=== PATIENT | male | born 2000 | race Caucasian/White ===

== ENCOUNTER 2024-09-24 14:11 | Emergency (ER) | payer BC, SELFPAY ==
[2024-09-24 14:26] VITALS: BP 228/150; PULSE 94; RESP 16; TEMP 36.7; O2SAT 99; BMI 41.6
[2024-09-24 15:47] VITALS: BP 243/166; PULSE 92; RESP 18; TEMP 36.8; O2SAT 97
--- NOTE | 2024-09-24 15:49 | ED_ITS ---
<Statement entered by Irene Arcos DO - 09/24/24 16:16> DO [place]: I was consulted by the GUI, and we discussed the complexity of the problems being addressed. I approved the treatment and management plan for this patient's care in the emergency department, thus performing a substantive portion of the medical decision making. I signed out care at 1500 to oncoming provider, Dr. Amezcua. Irene Arcos DO Discharge Plan Disposition Patient Disposition: Home, Self-Care Condition: Good Prescriptions Prescriptions: New doxycycline hyclate 100 mg capsule 100 mg PO BID 14 Days Qty: 28 0RF irbesartan 150 mg tablet 150 mg PO DAILY Qty: 60 0RF Referrals Follow up/Referrals: Reddy Zamorano MD [Primary Care Provider] - See instructions Activity Restrictions/Add. Instructions Additional Instructions/Restrictions: Please take all medications as prescribed, return to the emergency department any worsening redness or swelling, please take new blood pressure medication as prescribed until follow-up with primary care provider. Please return to the Emergency Department, PCPs office or department for rabies vaccination on day 3, 7 and 14, 28 Clinical Impressions Clinical Impression: Cat bite Instructions Patient Instructions: Animal Bites Print Language Print Language: Georgian Discharge ED Provider: Robert Amezcua General Adult HPI <OBIE Gallagher - Last Filed: 09/24/24 16:59> General Chief complaint: Animal Bite Stated complaint: AO 09/22/24. Infection R finger/Swelling Time Seen by Provider: 09/24/24 15:31 Mode of Arrival: Ambulatory Source of Information: Patient Description of Symptoms (Recalled from ER Triage Doc. by RN): pt to the ED after a cat bit him on tuesday. pt reports he was trying to help a feral cat when it attacked his hand. pt was seen at [facility] on tuesday and given augmentin. pt reports he has been taking it as ordered but the pain and swelling has continued to worsen. on assessment pt right index finger and dorsal hand is red, warm to the touch and swollen. pt also reports high blood pressure over the last few weeks but has been unable to get into PCP. History of Present Illness HPI narrative: 23-year-old male presents emergency department accompanied by his mother for a 2-day history of right hand pain, swelling and redness, on Tuesday patient was bit by a feral cat , he was seen in outside facility on the same day started on Augmentin 875 mg p.o. twice daily he is only taken 3 dose of this medication, at outside facility did not obtain updated tetanus/rabies vaccination, he is unsure of the cats vaccination status. He denies any fever chills chest pain shortness of breath nausea vomiting abdominal pain no urinary type symptomatology, patient has no other real relevant past medical history, takes no other medications at home, no history of surgeries, denies any tobacco alcohol or drug use. Per mother at the bedside states the redness has now spread involving the dorsal aspect of his hand. Initial triage vitals notable for hypertension, negative for tachycardia, no tachypnea, SpO2 within normal limits, also of note, mother states that they are attempting to get into primary care provider/establish care for possible underlying elevated blood pressure. Patient has had bouts of elevated high blood pressure and some headaches over the last several months. Onset (ago): day(s) Related Data Previous Rx's ?Medication ?Instructions ?Recorded doxycycline hyclate 100 mg capsule 100 mg PO BID 14 days #28 caps 09/24/24 irbesartan 150 mg tablet 150 mg PO DAILY #60 tabs 09/24/24 Allergies Allergy/AdvReac Type Severity Reaction Status Date / Time lisdexamfetamine (From Allergy Unknown Verified 09/24/24 14:55 Vyvanse) allergy reaction ziprasidone (From Geodon) Allergy Unknown Verified 09/24/24 14:55 allergy reaction [facility] <OBIE Gallagher - Last Filed: 09/24/24 16:59> [facility] Disclaimer: The information contained in this section may have been updated after the patient was seen, as this information can be updated by other users. Social History (Updated 09/24/24 @ 16:59 by OBIE Gallagher) Smoking Status: Never smoker alcohol intake: former current occupational status: employed and other Travel in the last 8 weeks: None Have you lived/traveled outside [place] in past 30 days?: No Contact w/someone who lives/traveled outside US past 30 days?: No Exposure to someone with infectious disease in past 14 days?: No Do you have a fever (greater than 100.4 F or 38 C)?: No Have you tested positive for COVID-19: No Exposed to someone with COVID-19 in past 14 days?: No Do you have a sore throat?: No Do you have a cough?: No Do you have any weakness?: No Do you have any diarrhea?: No Are you experiencing any unusual bleeding?: No Do you have any muscle aches/pain?: No Do you have any abdominal pain?: No Are you experiencing loss of taste or smell?: No <OBIE Gallagher - Last Filed: 09/24/24 16:59> ROS Obtained: Yes All systems reviewed & no additional complaints except as docu mented Physical Exam <OBIE Gallagher - Last Filed: 09/24/24 16:59> General General appearance: alert and in no apparent distress Head Head exam: atraumatic and normocephalic Eye Eye exam: Present PERRL and EOMI ENT ENT exam: Present mucous membranes moist Neck Neck exam: Present normal inspection Chest Chest inspection: Present normal inspection and symmetric chest wall rise Respiratory Respiratory exam: Present normal lung sounds bilaterally; Absent respiratory distress Cardiovascular Cardiovascular exam: Present regular rate and normal rhythm Abdominal Exam Abdominal exam: Present soft; Absent tenderness Extremities Exam Extremities exam: Present normal inspection, full ROM, tenderness and other (There is some minimal soft tissue swelling to the dorsum of the right hand, there is some mild soft tissue swelling about the patient's first digit, negative Knievel sign, patient moves extremity to command, no upper or lower extremity weakness, good finger opposition, otherwise neurovascular intact) Back Exam Back exam: Present full ROM Neurological Exam Neurological exam: Present alert and oriented X3 Psychiatric Psychiatric exam: Present normal affect Skin Skin exam: Present warm, dry, erythema and other (Minimal to mild erythema noted around the right first digit, with some normal/mild erythema standing on the dorsum of the hand, no lymphangitic streaking.); Absent rash Medical Decision Making <OBIE Gallagher - Last Filed: 09/24/24 16:59> Medical Records Medical records reviewed: Yes I reviewed the patient's medical records. Screening: Per USPSTF and CDC recommendations, given the prevalence of disease in our region, it is our hospital?s policy to screen for HIV and viral Hepatitis for all patients aged 18 and over and those with ongoing risk factors. Rodrigo Inquiry Pt receiving controlled substance: No Rodrigo was queried for this patient: No Vital Signs: 09/24/24 14:26 09/24/24 15:47 09/24/24 17:05 Temperature 98.1 F 98.3 F 98.3 F Temperature Source Oral Oral Pulse Rate 92 H 74 Pulse Rate [Left Radial] 94 H Respiratory Rate 16 18 18 Blood Pressure 243/166 H 196/108 H Blood Pressure [Right Arm] 228/150 H Blood Pressure Mean [Right Arm] 176 Blood Pressure Source Automatic Cuff Automatic Cuff Blood Pressure Source [Right Arm] Automatic Cuff Blood Pressure Position Sitting Sitting Blood Pressure Position [Right Arm] Sitting 02 Sat by Pulse Oximetry 99 97 Oxygen Delivery Method Room Air Room Air Room Air Orders (Tests/Meds): ED MEDICATIONS Discontinued Medications Generic Name Dose Route Start Last Admin Trade Name Freq PRN Reason Stop Dose Admin Irbesartan 150 mg 09/24/24 15:47 09/24/24 16:40 Irbesartan 150mg Tab PO 09/24/24 15:48 150 mg ONCE ONE Administration Rabies Immune Globulin 2,785 unit 09/24/24 15:46 09/24/24 16:03 Rabies Immune Globulin/Pf 300 Unit/Ml 5ml Vial IM 09/24/24 15:47 2,785 unit ONCE ONE Administration Rabies Vaccine 2.5 unit 09/24/24 15:46 09/24/24 16:06 Rabies Vaccine (Pcec)/Pf 2.5 Unit Vial IM 09/24/24 15:47 2.5 unit .ONCE ONE Administration Tetanus/Reduced Diphtheria/Acell Pertussis 0.5 ml 09/24/24 15:45 09/24/24 16:00 Tet/Diphth/Pert-Adult 0.5ml Syringe IM 09/24/24 15:46 0.5 ml .ONCE ONE Administration ORDERS Category Date Time Status POCUS Point of Care (ER Only) Stat Exams 09/24/24 16:24 Completed Medical Decision Narrative: 23-year-old male presents to the emergency department with right hand pain swelling and redness, cat bite on Tuesday, differential diagnose include not limited to cat scratch fever, cellulitis, mammalian bite, cellulitic abscess. Discussed patient case with attending physician he saw and examined the patient as well Will update patient's tetanus prophylaxis, will give rabies immunoglobulin and his first dose of rabies vaccine here today in the emergency department, as cat was unknown to him and unknown vaccination status. Will also treat patient's asymptomatic hypertension with 150 mg p.o. irbesartan here in the emergency department. Will also obtain POCUS ultrasound to rule out abscess. Attending physician performed the bedside POCUS ultrasound, there is no cobblestoning, there is no concern for cellulitic abscess formation at this time. Please see full ultrasound procedure/dictation note for full details. Patient cleared to be discharged home to self-care, no concern for felon or abscess at this time, patient will be started on irbesartan 150 mg p.o. for asymptomatic hypertension daily, as well as 100 mg p.o. twice daily for 14 days, patient will continue Augmentin. She will return emerged part any worsening signs or symptoms, patient will return to Emergency Department or PCPs office for rabies series vaccination. Strict ED return precaution given. Patient verbalized understanding will follow PCP as directed. And take all medication as prescribed. <Robert Amezcua MD - Last Filed: 09/24/24 17:22> Vital Signs: 09/24/24 14:26 09/24/24 15:47 09/24/24 17:05 Temperature 98.1 F 98.3 F 98.3 F Temperature Source Oral Oral Pulse Rate 92 H 74 Pulse Rate [Left Radial] 94 H Respiratory Rate 16 18 18 Blood Pressure 243/166 H 196/108 H Blood Pressure [Right Arm] 228/150 H Blood Pressure Mean [Right Arm] 176 Blood Pressure Source Automatic Cuff Automatic Cuff Blood Pressure Source [Right Arm] Automatic Cuff Blood Pressure Position Sitting Sitting Blood Pressure Position [Right Arm] Sitting 02 Sat by Pulse Oximetry 99 97 Oxygen Delivery Method Room Air Room Air Room Air Orders (Tests/Meds): ED MEDICATIONS Discontinued Medications Generic Name Dose Route Start Last Admin Trade Name Pkq PRN Reason Stop Dose Admin Irbesartan 150 mg 09/24/24 15:47 09/24/24 16:40 Irbesartan 150mg Tab PO 09/24/24 15:48 150 mg ONCE ONE Administration Rabies Immune Globulin 2,785 unit 09/24/24 15:46 09/24/24 16:03 Rabies Immune Globulin/Pf 300 Unit/Ml 5ml Vial IM 09/24/24 15:47 2,785 unit ONCE ONE Administration Rabies Vaccine 2.5 unit 09/24/24 15:46 09/24/24 16:06 Rabies Vaccine (Pcec)/Pf 2.5 Unit Vial IM 09/24/24 15:47 2.5 unit .ONCE ONE Administration Tetanus/Reduced Diphtheria/Acell Pertussis 0.5 ml 09/24/24 15:45 09/24/24 16:00 Tet/Diphth/Pert-Adult 0.5ml Syringe IM 09/24/24 15:46 0.5 ml .ONCE ONE Administration ORDERS Category Date Time Status POCUS Point of Care (ER Only) Stat Exams 09/24/24 16:24 Completed Medical Decision Narrative: 23-year-old male presents to the emergency department with right hand pain swelling and redness, cat bite on Tuesday, differential diagnose include not limited to cat scratch fever, cellulitis, mammalian bite, cellulitic abscess. Discussed patient case with attending physician he saw and examined the patient as well Will update patient's tetanus prophylaxis, will give rabies immunoglobulin and his first dose of rabies vaccine here today in the emergency department, as cat was unknown to him and unknown vaccination status. Will also treat patient's asymptomatic hypertension with 150 mg p.o. irbesartan here in the emergency department. Will also obtain POCUS ultrasound to rule out abscess. Attending physician performed the bedside POCUS ultrasound, there is no cobblestoning, there is no concern for cellulitic abscess formation at this time. Please see full ultrasound procedure/dictation note for full details. Patient cleared to be discharged home to self-care, no concern for felon or abscess at this time, patient will be started on irbesartan 150 mg p.o. for asymptomatic hypertension daily, as well as 100 mg p.o. twice daily for 14 days, patient will continue Augmentin. She will return emerged part any worsening signs or symptoms, patient will return to Emergency Department or PCPs office for rabies series vaccination. Strict ED return precaution given. Patient verbalized understanding will follow PCP as directed. And take all medication as prescribed. I was consulted by the GUI, and we discussed the complexity of the problems being addressed. I approved the treatment and management plan for this patient's care in the Emergency Department, thus performing a substantive portion of the medical decision making. Robert Amezcua MD Procedures <Robert Amezcua MD - Last Filed: 09/24/24 17:22> Limited Ultrasound Indication:: Limited soft tissue ultrasound Indication: Soft tissue swelling of the right hand Identified structures: Location: Dorsum of right hand and right index finger Findings: Soft tissue cellulitis with inflammatory fluid, no abscess Impression: Cellulitis without abscess Images were saved to permanent archive The study was technically adequate Soft Tissue CPT Codes: CPT Neck: 17489-63 CPT Upper extremity: 68969-29 CPT Axilla: 46426-32 CPT Chest wall: 61688-39 CPT Breast: 47878-89-HY/LT (complete), 82416-43-ZC/LT (limited), CPT Upper Back: 41261-06 CPT Lower Back: 62492-41 CPT Abdominal Wall: 46163-20 CPT Pelvic Wall: 02345-73 CPT Lower Extremity: 04994-02 CPT Other Soft Tissue: 99885-99 This study was performed by me, and I personally interpreted all images/videos. Based on my clinical judgement, these images were adequate and did not necessitate further imaging. Critical Care <OBIE Gallagher - Last Filed: 09/24/24 16:59> Critical Care Time Critical Care Time: No
[2024-09-24] MEDS: TET/DIPHTH/PERT-ADULT 0.5ML SYRINGE 0.5 ML IM (16:00)
[2024-09-24] MEDS: RABIES IMMUNE GLOBULIN/PF 300 UNIT/ML 5ML VIAL 2785 UNIT IM (16:03)
[2024-09-24] MEDS: RABIES VACCINE (PCEC)/PF 2.5 UNIT VIAL IM (16:06)
[2024-09-24] MEDS: IRBESARTAN 150MG TAB 150 MG PO (16:40)
[2024-09-24 17:05] VITALS: BP 196/108; PULSE 74; RESP 18; TEMP 36.8; O2SAT 98
== END 2024-09-24 17:10 | disposition home or self-care (01) ==
PROVIDERS: Emergency Provider Emergency Medicine; PCP Family Medicine
DX: M79.641 Pain in right hand (principal); R22.31 Localized swelling, mass and lump, right upper limb; R51.9 Headache, unspecified; R03.0 Elevated blood-pressure reading, without diagnosis of hypertension; Z20.3 Contact with and (suspected) exposure to rabies; Z23 Encounter for immunization; W55.01XA Bitten by cat, initial encounter; Y93.89 Activity, other specified; Y92.9 Unspecified place or not applicable
CPT/HCPCS: 90375; 90471; 90675; 90715; 96372; 99284

== ENCOUNTER 2024-10-26 14:08 | Outpatient (CLI) | payer BC, SELFPAY ==
[2024-10-26 18:31] LABS: Basophils # 0.1 K/mm3 (0-0.2); Basophils % 0.9 % (0.1-2.0); Eosinophils # 0.1 Kmm3 (0.0-0.4); Eosinophils % 1.3 % (0.1-12.0); Hematocrit 46.3 % (42.0-52.0); Hemoglobin 15.5 g/dL (14.1-18.0); Immature Granulocytes # 0.02 10^3uL; Immature Granulocytes % 0.3 %; Lymphocytes # 2.6 K/mm3 (0.7-4.5); Lymphocytes % 37.8 % (10-50); Mean Corpuscular HGB Conc 33.5 g/dL (31.8-35.4); Mean Corpuscular Hemoglobin 26.1 pg (27.0-31.2); Mean Corpuscular Volume 77.9 fl (80-94); Mean Platelet Volume 11.2 fl (7.4-10.4); Monocytes # 0.7 K/mm3 (0.1-1.0); Monocytes % 9.4 % (1.7-9.3); Neutrophils # 3.5 K/mm3 (1.8-7.8); Neutrophils % 50.3 % (37.0-80.0); Nucleated Red Blood Cells # 0 10^3/uL; Nucleated Red Blood Cells % 0 %; Platelet Count 234 K/mm3 (142-424); Red Blood Count 5.94 M/mm3 (4.60-6.20); Red Cell Distribution Width 13.9 % (11.5-17.5); Red Cell Distribution Width-SD 38.8 fL; White Blood Count 6.9 K/mm3 (4.8-10.8)
[2024-10-26 18:49] LABS: Alanine Aminotransferase 56 U/L (12-78); Albumin/Globulin Ratio 1.9 (1.1-1.8); Alkaline Phosphatase 86 U/L (38-126); Anion Gap 10.6 mEq/L (5-15); Aspartate Amino Transferase 32 U/L (17-59); Bilirubin,Total 0.5 mg/dl (0.2-1.3); Blood Urea Nitrogen 15 mg/dl (9-20); Calcium 9.9 mg/dl (8.4-10.2); Carbon Dioxide 30 mmol/L (22.0-30.0); Chloride 103 mmol/L (98-107); Chol/HDL Ratio 6.2 (1-3.5); Cholesterol 198 mg/dl (140-200); Estimated Glomerular Filt Rate 142 ml/min (>60); GFR (African American) 172 ML/MIN (>60); Globulin 2.7 g/dL (1.3-3.2); Glucose 106 mg/dl (74-100); HDL Cholesterol 32 mg/dl (40-60); Potassium 4.6 mmoL/L (3.5-5.1); Sodium 139 mmol/L (136-145); Total Protein,Serum 7.7 g/dl (6.3-8.2); Triglycerides 240 mg/dl (30-150); VLDL Cholesterol 48 mg/dL (0-40)
[2024-10-26 19:00] LABS: Direct LDL Cholesterol 130.77 mg/dL (100-129)
[2024-10-26 19:35] LABS: HIV Combo NEGATIVE (Negative)
[2024-10-26 21:23] LABS: Hepatitis C Ab Qual. W/ RFX NEGATIVE (Negative)
== END 2024-10-26 23:59 | disposition home or self-care (01) ==
LOC: LAB.DROPOF 10-29 09:55
PROVIDERS: PCP Family Medicine; Visit Provider Family Medicine
DX: I10 Essential (primary) hypertension (principal); E66.01 Morbid (severe) obesity due to excess calories; Z11.59 Encounter for screening for other viral diseases
CPT/HCPCS: 80053; 80061; 85025; 86803; 87389

== ENCOUNTER 2025-02-06 05:10 | Emergency (ER) | payer BC, SELFPAY ==
[2025-02-06] VITALS (7 sets, daily range): BP systolic 94–121; BP diastolic 54–80; PULSE 87–101; RESP 19–22; TEMP 36.8; O2SAT 96–99; BMI 37.3
--- NOTE | 2025-02-06 05:12 | XR_ITS ---
PROCEDURE INFORMATION: Exam: XR Chest Exam date and time: 02/06/2025 5:23 AM Age: 24 years old Clinical indication: Pain; Chest pressure; Additional info: Left chest pain TECHNIQUE: Imaging protocol: Radiologic exam of the chest. Views: 2 views. COMPARISON: No relevant prior studies available. FINDINGS: Lungs: Mild underinflation. No definite consolidation. Pleural spaces: No significant pleural effusion. No pneumothorax. Heart/Mediastinum: No cardiomegaly. Bones/joints: No displaced fracture. Soft tissues: Unremarkable. IMPRESSION: No definite acute cardiopulmonary disease.
--- NOTE | 2025-02-06 05:13 | HMH.EDGENADL ---
Discharge Plan Disposition Patient Disposition: Home, Self-Care Prescriptions Prescriptions: No Action amlodipine-benazepril [Lotrel] 10-40 mg capsule 1 cap PO DAILY Qty: 90 3RF hydrochlorothiazide 25 mg tablet 25 mg PO DAILY Qty: 90 3RF Referrals Follow up/Referrals: Jatinder Shin MD [Staff Physician, Cardiology] - See instructions Reddy Zamorano MD [Primary Care Provider, Family Practice] - See instructions Activity Restrictions/Add. Instructions Additional Instructions/Restrictions: No evidence of an acute cardiopulmonary emergency identified today. Please follow-up with cardiology to discuss your symptoms further. Clinical Impressions Clinical Impression: Chest pain, Obesity Print Language Print Language: Citizen Of [place] Discharge ED Provider: Maude Shearer Adult HPI <Maude Shearer MD - Last Filed: 02/06/25 07:15> General Chief complaint: Chest Pain Stated complaint: chest pain Time Seen by Provider: 02/06/25 05:12 History of Present Illness HPI narrative: 24-year-old male with history of high blood pressure presents to the ER complaining of approximately 20 hours hours of sharp left-sided chest pain. He states it has not gotten better or worse since the time that it started but it has not gone away so he came to the ER for evaluation. Patient reports walking his dog made him feel somewhat better but nothing specific makes it worse, he has no shortness of breath or difficulty breathing, no headache, dizziness, numbness, tingling, weakness, abdominal pain, nausea, vomiting, diarrhea, or any other associated symptoms. Patient denies any cardiac history. No other complaints or concerns. Patient denies alcohol, tobacco, illicit drug use. Related Data Previous Rx's ?Medication ?Instructions ?Recorded amlodipine 10 mg-benazepril 40 mg 1 cap PO DAILY #90 caps 10/26/24 capsule (Lotrel) hydrochlorothiazide 25 mg tablet 25 mg PO DAILY #90 tabs 10/26/24 Allergies Allergy/AdvReac Type Severity Reaction Status Date / Time lisdexamfetamine (From Allergy Unknown Verified 10/26/24 13:31 Vyvanse) allergy reaction ziprasidone (From Geodon) Allergy Unknown Verified 10/26/24 13:31 allergy reaction PFSH <Maude Shearer MD - Last Filed: 02/06/25 07:15> [facility] Disclaimer: The information contained in this section may have been updated after the patient was seen, as this information can be updated by other users. Medical History (Updated 02/06/25 @ 07:56 by Satnam Benton MD) Hypertension Surgical History (Updated 10/26/24 @ 13:34 by Venus Alexandra MA) No history of previous surgery Family History (Updated 10/26/24 @ 13:35 by Venus Alexandra MA) Father Cancer Diabetes Grandfather Heart failure Other Hypertension Social History (Updated 09/24/24 @ 16:59 by OBIE Gallagher) Smoking Status: Never smoker alcohol intake: former current occupational status: employed and other Travel in the last 8 weeks?: None <Maude Shearer MD - Last Filed: 02/06/25 07:15> ROS Obtained: Yes Systems reviewed as appropriate & no additional complaints except as documented Per HPI Physical Exam <Maude Shearer MD - Last Filed: 02/06/25 07:15> General General appearance: alert, in no apparent distress, anxious and obese Head Head exam: atraumatic and normocephalic Eye Eye exam: Present PERRL and EOMI ENT ENT exam: Present mucous membranes moist Neck Neck exam: Present normal inspection and full ROM Chest Chest inspection: Present symmetric chest wall rise; Absent tenderness Respiratory Respiratory exam: Present normal lung sounds bilaterally; Absent respiratory distress, wheezes or stridor Cardiovascular Cardiovascular exam: Present regular rate and normal rhythm Abdominal Exam Abdominal exam: Present soft; Absent distention or tenderness Extremities Exam Extremities exam: Present full ROM; Absent edema Neurological Exam Neurological exam: Present alert and oriented X3; Absent motor sensory deficit Psychiatric Psychiatric exam: Present anxious (Anxious appearing, asking questions rapidly) Skin Skin exam: Present warm and dry Medical Decision Making <Maude Shearer MD - Last Filed: 02/06/25 07:15> Medical Records Medical records reviewed: Yes I reviewed the patient's medical records. Screening: Per USPSTF and CDC recommendations, given the prevalence of disease in our region, it is our hospital?s policy to screen for HIV and viral Hepatitis for all patients aged 18 and over and those with ongoing risk factors. MR Comment: Patient had visit with Dr. Zamorano in October. He was started on amlodipine and hydrochlorothiazide at that time. Labs from that visit were reviewed by me and are generally unremarkable though he has elevated cholesterol. He is not currently on a statin. Rodrigo Inquiry Pt receiving controlled substance: No Vital Signs: 02/06/25 05:12 02/06/25 05:23 02/06/25 06:00 Temperature 98.3 F Temperature Source Oral Pulse Rate 101 H 101 H Pulse Rate [Left Radial] 101 H Respiratory Rate 19 22 Blood Pressure 106/58 L Blood Pressure [Right Arm] 94/54 L Blood Pressure Mean 63 Blood Pressure Mean [Right Arm] 67 02 Sat by Pulse Oximetry 96 96 Oxygen Delivery Method Room Air Lab Data Lab Results 02/06/25 05:15: WBC 11.4 H, RBC 6.21 H, Hgb 16.8, Hct 48.5, MCV 78.1 L, MCH 27.1, MCHC 34.6, RDW 14.5, Plt Count 334, MPV 9.9, Neut % (Auto) 60.2, Lymph % (Auto) 28.2, [place] % (Auto) 9.5 H, Eos % (Auto) 1.3, Baso % (Auto) 0.6, Neut # (Auto) 6.9, Lymph # (Auto) 3.2, [place] # (Auto) 1.1 H, Eos # (Auto) 0.2, Baso # (Auto) 0.1, PT 11.4, INR 1.03, D-Dimer 0.75 H, Sodium 146 H, Potassium 4.0, Chloride 106, Carbon Dioxide 27, Anion Gap 17.0 H, BUN 18, Creatinine 1.10, Estimated Creat Clear 186, Estimated GFR 84, Est GFR ( Amer) 101, Glucose 97, Calcium 10.1, Total Bilirubin 0.6, AST 33, ALT 39, Alkaline Phosphatase 86, Troponin I < 0.01, Total Protein 9.2 H, Albumin 5.1 H, Globulin 4.1 H, Albumin/Globulin Ratio 1.2 02/06/25 05:15 02/06/25 05:15 Orders (Tests/Meds): ED MEDICATIONS Generic Name Dose Route Start Last Admin Trade Name Freq PRN Reason Stop Dose Admin Nitroglycerin 0.4 mg 02/06/25 05:12 Nitroglycerin 0.4mg Sl Tablet SL 02/07/25 05:13 [id number] PRN Chest Pain Discontinued Medications Generic Name Dose Route Start Last Admin Trade Name Freq PRN Reason Stop Dose Admin Aspirin 324 mg 02/06/25 05:12 02/06/25 05:18 Aspirin 81mg Chewable Tablet PO 02/06/25 05:13 324 mg ONCE ONE Administration Belladonna Alkaloids 60 ml 02/06/25 05:13 02/06/25 05:19 Belladonna Alkaloids 60 Ml Ml PO 02/06/25 05:14 60 ml ONCE ONE Administration Iopamidol 85 ml 02/06/25 06:54 02/06/25 07:00 Iopamidol-370 (76%);100ml Bottle IV 02/06/25 06:55 85 ml ONCE ONE Administration Sodium Chloride 50 ml 02/06/25 06:54 02/06/25 07:00 0.9 % Sodium Chloride 50 Ml Vial IV 02/06/25 06:55 50 ml ONCE ONE Administration Sodium Chloride 10 ml 02/06/25 06:54 02/06/25 07:00 Sodium Chloride 0.9% 10ml Syr (Rad Only) IV 02/06/25 06:55 10 ml ONCE ONE Administration ORDERS Category Date Time Status CT angio chest PE protocol Stat Cat Scan 02/06/25 06:15 Completed XR chest 2V Stat Exams 02/06/25 05:12 Completed Complete Blood Count Auto Diff Stat Lab 02/06/25 05:15 Completed Comprehensive Metabolic Panel Stat Lab 02/06/25 05:15 Completed D-Dimer Stat Lab 02/06/25 05:15 Completed PT INR [Prothrombin Time INR] Stat Lab 02/06/25 05:15 Completed Troponin I Q3H Lab 02/06/25 08:15 Ordered Troponin I Q3H Lab 02/06/25 11:15 Ordered Troponin I Stat Lab 02/06/25 05:15 Completed Medical Decision Narrative: In summary, this 24-year-old male with comorbidities described in the HPI presents to the emergency department today with nearly a day of reportedly sharp, stabbing left-sided chest pain that was only relieved when he was walking his dog, patient has no other associated symptoms. On initial evaluation patient is hemodynamically stable though borderline tachycardic, afebrile, appears anxious on arrival, obese, chest pain not reproducible on exam, benign abdominal exam, cardiopulmonary exam benign. Differential diagnosis includes but is not limited to ACS, considered PE, pneumothorax, esophageal spasm, electrolyte abnormality, anxiety, among others. Based on these concerns, I ordered cardiac workup, chest x-ray, serum labs, D-dimer. ECG personally interpreted demonstrates sinus tachycardia, rate 106, right axis deviation, normal MO and QTc, there are T wave inversions and slight depression in the inferior leads but no reciprocal findings, no STEMI. There is S1Q3T3 pattern so if D-dimer is elevated we will pursue PE scan. Patient received aspirin for treatment. Labs personally reviewed demonstrate leukocytosis WBC 11.4, nonspecific and nonactionable, no anemia, platelets normal, PT/INR normal, D-dimer 0.75 but patient remains tachycardic with blood pressure in the low 100s when he is typically hypertensive so I will pursue CTA PE to rule out pulmonary embolism though I suspect this is unlikely. Troponin undetectably low less than 0.01 significantly reassuring against cardiac pathology given patient has had symptoms for nearly a full day. If this was cardiac in etiology his troponin should be elevated by now. Chest x-ray personally interpreted does not demonstrate acute intrathoracic abnormality, see radiology read for final interpretation. Repeat ECG personally interpreted demonstrates sinus tachycardia, rate 101, right axis deviation, normal MO and QTc, abnormalities in the inferior leads are persistent but unchanged, no dynamic changes, no STEMI. S1Q3T3 persistent. On reassessment patient is comfortable only complaining of the IV in his right arm. Pending CTA PE at this time. Family at bedside and is very concerned that patient has not had the full workup for his high blood pressure that he should have had previously because the hospital had our phone number wrong so they have not followed up with the labs ordered by Dr. Zamorano. They are very concerned that the blood pressure could be contributing to his symptoms. They expressed that his blood pressures were over 200 which they were very worried about in a 24-year-old. I agree with this concern, with his abnormalities on EKG I did consider the possibility that patient could have pulmonary hypertension. I discussed at length with him that close compliance with his medications and follow-up with the outpatient orders will be ace but reassured them that the workup in the ER is for rule out of acute life-threatening pathology of his chest pain and that the CT scan is still pending at this time. CT pending at the time of physician handoff. Patient handed off to Dr. Benton in stable condition. <Satnam Benton MD - Last Filed: 02/06/25 08:00> Vital Signs: 02/06/25 05:12 02/06/25 05:23 02/06/25 06:00 Temperature 98.3 F Temperature Source Oral Pulse Rate 101 H 101 H Pulse Rate [Left Radial] 101 H Respiratory Rate 19 22 Blood Pressure 106/58 L Blood Pressure [Right Arm] 94/54 L Blood Pressure Mean 63 Blood Pressure Mean [Right Arm] 67 02 Sat by Pulse Oximetry 96 96 Oxygen Delivery Method Room Air Lab Data Lab results reviewed: Yes I reviewed the patient's lab results. Lab Results 02/06/25 05:15: WBC 11.4 H, RBC 6.21 H, Hgb 16.8, Hct 48.5, MCV 78.1 L, MCH 27.1, MCHC 34.6, RDW 14.5, Plt Count 334, MPV 9.9, Neut % (Auto) 60.2, Lymph % (Auto) 28.2, [place] % (Auto) 9.5 H, Eos % (Auto) 1.3, Baso % (Auto) 0.6, Neut # (Auto) 6.9, Lymph # (Auto) 3.2, [place] # (Auto) 1.1 H, Eos # (Auto) 0.2, Baso # (Auto) 0.1, PT 11.4, INR 1.03, D-Dimer 0.75 H, Sodium 146 H, Potassium 4.0, Chloride 106, Carbon Dioxide 27, Anion Gap 17.0 H, BUN 18, Creatinine 1.10, Estimated Creat Clear 186, Estimated GFR 84, Est GFR ( Amer) 101, Glucose 97, Calcium 10.1, Total Bilirubin 0.6, AST 33, ALT 39, Alkaline Phosphatase 86, Troponin I < 0.01, Total Protein 9.2 H, Albumin 5.1 H, Globulin 4.1 H, Albumin/Globulin Ratio 1.2 Orders (Tests/Meds): ED MEDICATIONS Generic Name Dose Route Start Last Admin Trade Name Freq PRN Reason Stop Dose Admin Nitroglycerin 0.4 mg 02/06/25 05:12 Nitroglycerin 0.4mg Sl Tablet SL 02/07/25 05:13 [id number] PRN Chest Pain Discontinued Medications Generic Name Dose Route Start Last Admin Trade Name Freq PRN Reason Stop Dose Admin Aspirin 324 mg 02/06/25 05:12 02/06/25 05:18 Aspirin 81mg Chewable Tablet PO 02/06/25 05:13 324 mg ONCE ONE Administration Belladonna Alkaloids 60 ml 02/06/25 05:13 02/06/25 05:19 Belladonna Alkaloids 60 Ml Ml PO 02/06/25 05:14 60 ml ONCE ONE Administration Iopamidol 85 ml 02/06/25 06:54 02/06/25 07:00 Iopamidol-370 (76%);100ml Bottle IV 02/06/25 06:55 85 ml ONCE ONE Administration Sodium Chloride 50 ml 02/06/25 06:54 02/06/25 07:00 0.9 % Sodium Chloride 50 Ml Vial IV 02/06/25 06:55 50 ml ONCE ONE Administration Sodium Chloride 10 ml 02/06/25 06:54 02/06/25 07:00 Sodium Chloride 0.9% 10ml Syr (Rad Only) IV 02/06/25 06:55 10 ml ONCE ONE Administration ORDERS Category Date Time Status CT angio chest PE protocol Stat Cat Scan 02/06/25 06:15 Completed XR chest 2V Stat Exams 02/06/25 05:12 Completed Complete Blood Count Auto Diff Stat Lab 02/06/25 05:15 Completed Comprehensive Metabolic Panel Stat Lab 02/06/25 05:15 Completed D-Dimer Stat Lab 02/06/25 05:15 Completed PT INR [Prothrombin Time INR] Stat Lab 02/06/25 05:15 Completed Troponin I Q3H Lab 02/06/25 08:15 Ordered Troponin I Q3H Lab 02/06/25 11:15 Ordered Troponin I Stat Lab 02/06/25 05:15 Completed Medical Decision Narrative: In summary, this 24-year-old male with comorbidities described in the HPI presents to the emergency department today with nearly a day of reportedly sharp, stabbing left-sided chest pain that was only relieved when he was walking his dog, patient has no other associated symptoms. On initial evaluation patient is hemodynamically stable though borderline tachycardic, afebrile, appears anxious on arrival, obese, chest pain not reproducible on exam, benign abdominal exam, cardiopulmonary exam benign. Differential diagnosis includes but is not limited to ACS, considered PE, pneumothorax, esophageal spasm, electrolyte abnormality, anxiety, among others. Based on these concerns, I ordered cardiac workup, chest x-ray, serum labs, D-dimer. ECG personally interpreted demonstrates sinus tachycardia, rate 106, right axis deviation, normal MO and QTc, there are T wave inversions and slight depression in the inferior leads but no reciprocal findings, no STEMI. There is S1Q3T3 pattern so if D-dimer is elevated we will pursue PE scan. Patient received aspirin for treatment. Labs personally reviewed demonstrate leukocytosis WBC 11.4, nonspecific and nonactionable, no anemia, platelets normal, PT/INR normal, D-dimer 0.75 but patient remains tachycardic with blood pressure in the low 100s when he is typically hypertensive so I will pursue CTA PE to rule out pulmonary embolism though I suspect this is unlikely. Troponin undetectably low less than 0.01 significantly reassuring against cardiac pathology given patient has had symptoms for nearly a full day. If this was cardiac in etiology his troponin should be elevated by now. Chest x-ray personally interpreted does not demonstrate acute intrathoracic abnormality, see radiology read for final interpretation. Repeat ECG personally interpreted demonstrates sinus tachycardia, rate 101, right axis deviation, normal MO and QTc, abnormalities in the inferior leads are persistent but unchanged, no dynamic changes, no STEMI. S1Q3T3 persistent. On reassessment patient is comfortable only complaining of the IV in his right arm. Pending CTA PE at this time. Family at bedside and is very concerned that patient has not had the full workup for his high blood pressure that he should have had previously because the hospital had our phone number wrong so they have not followed up with the labs ordered by Dr. Zamorano. They are very concerned that the blood pressure could be contributing to his symptoms. They expressed that his blood pressures were over 200 which they were very worried about in a 24-year-old. I agree with this concern, with his abnormalities on EKG I did consider the possibility that patient could have pulmonary hypertension. I discussed at length with him that close compliance with his medications and follow-up with the outpatient orders will be ace but reassured them that the workup in the ER is for rule out of acute life-threatening pathology of his chest pain and that the CT scan is still pending at this time. CT pending at the time of physician handoff. Patient handed off to Dr. Benton in stable condition. This is Dr. Benton at 7:[address] scan was performed which I personally interpreted which shows no evidence of any cardiothoracic abnormality or emergency specifically no evidence of a pulmonary embolism or significant right heart strain noted. EKG was reviewed and did have an S1Q3T3 which may be a normal variant however given his chest discomfort his morbid obesity etc. we will have him follow-up with cardiology as this could also be evidence of right heart strain pulmonary hypertension etc. From emergency standpoint patient looks excellent on my clinical reassessment troponin undetectably low he had symptoms all day long no evidence that we need to get any serial troponins. Patient was discharged in stable condition and was reassured. Critical Care <Maude Shearer MD - Last Filed: 02/06/25 07:15> Critical Care Time Critical Care Time: No
--- NOTE | 2025-02-06 05:15 | ECG_ITS ---
APPROVED REPORT Exam: Resting ECG HR:106 bpm ECG Measurements Heart Rate 106 AXES KS 141 P 43 QRSd 103 QRS 104 QT 312 T -31 QTc 374 Conclusion SINUS TACHYCARDIA RIGHT AXIS DEVIATION [QRS AXIS > 100] ST DEVIATION AND MODERATE T-WAVE ABNORMALITY, CONSIDER INFERIOR ISCHEMIA [-0.1+ mV T-WAVE IN II/aVF] No STEMI. S1Q3T3 pattern potentially indicative of right heart strain or right hypertrophy Electronically signed by : ROSHAN ABRAMS, 02/07/2025 06:25:42
[2025-02-06] MEDS: ASPIRIN 81MG CHEWABLE TABLET 324 MG PO (05:18)
[2025-02-06] MEDS: BELLADONNA ALKALOIDS 60 ML ML PO (05:19)
--- OUTSIDE RECORDS SUMMARY | 2025-02-06 05:20 | XMS_ITS | Clinical Summary ---
Author Organization [facility] Address [address] [place] [address] Phone Care Team Providers Care Police Patrol Lieutenant Name Role Phone Unavailable Primary Care Provider Unavailabl e Allergies Active Allergy Reactions Criticality Noted Date Comments Ziprasidone Hcl 04/09/2012 Medications No known medications Medical History Medical History Date Comments ADHD (attention deficit hyperactivity disorder) Bipolar 1 disorder (HCC) Social History Tobacco Use Types Packs/Day Years Used Date Smoking Tobacco: Never Smokeless Tobacco: Never Tobacco Cessation:Counseling Given: Not Answered Sex and Gender Information Value Date Recorded Sex Assigned at Not on file Legal Sex Male 11:59 PM EDT Gender Identity Not on file Sexual Orientation Not on file Obstetrics History Last Filed Vital Signs Vital Sign Reading Time Taken Comments Blood Pressure 190/128 09/23/2024 12:35 AM EDT Pulse 95 09/23/2024 12:35 AM EDT Temperature 36.8 C (98.2 F) 09/23/2024 12:12 AM EDT Respiratory Rate 20 09/23/2024 12:35 AM EDT Oxygen Saturation 99% 09/23/2024 12:35 AM EDT Inhaled Oxygen Concentration - - Weight 55.3 kg (122 lb) 04/09/2012 1:50 PM EDT Height - - Body Mass Index - - Plan of Treatment Health Maintenance Due Date Last Done Comments Hepatitis B Vaccine (2 of 3 - 3-dose series) 07/29/2004 07/01/2004 Annual Wellness Exam 2005 DTaP/TDaP/Td (4 - Tdap) 2013 01/18/20 07, 07/16/2005, 07/01/2004 Meningococcal B Vaccine (1 o f 2 - Standard) 2018 HPV (2 - Male 3-dose series) 12/29/2021 12/01/2021 COVID-19 Vaccine ( - 2023-2 5 season) 2024 Influenza Vaccine (#1) 2025 Pneumococcal Vaccine 0-49 Aged Out 2005, 07/01/2004 No longer eligible based on patient's age to complete this topic Insurance [employer] PPO [facility] [employer] PPO
[2025-02-06 05:28] LABS: Albumin Level 5.1 g/dl (3.5-5.0); Chloride 106 mmol/L (98-107); Sodium 146 mmol/L (136-145)
[2025-02-06 05:29] LABS: Potassium 4.0 mmoL/L (3.5-5.1)
[2025-02-06 05:31] LABS: Alanine Aminotransferase 39 U/L (12-78); Anion Gap 17.0 mEq/L (5-15); Aspartate Amino Transferase 33 U/L (17-59); Blood Urea Nitrogen 18 mg/dl (9-20); Carbon Dioxide 27 mmol/L (22.0-30.0); Creatinine Clearance Estimated 186 mL/min (50-200); Creatinine,Serum 1.10 mg/dl (0.66-1.25); Estimated Glomerular Filt Rate 84 ml/min (>60); GFR (African American) 101 ML/MIN (>60)
[2025-02-06 05:32] LABS: Albumin/Globulin Ratio 1.2 (1.1-1.8); Alkaline Phosphatase 86 U/L (38-126); Bilirubin,Total 0.6 mg/dl (0.2-1.3); Calcium 10.1 mg/dl (8.4-10.2); Globulin 4.1 g/dL (1.3-3.2); Glucose 97 mg/dl (74-100); Total Protein,Serum 9.2 g/dl (6.3-8.2)
[2025-02-06 05:36] LABS: INR 1.03 (0.9-1.1); Prothrombin Time 11.4 seconds (10.1-12.5)
[2025-02-06 05:42] LABS: Hematocrit 48.5 % (42.0-52.0); Hemoglobin 16.8 g/dL (14.1-18.0); Immature Granulocytes % 0.2 %; Mean Corpuscular HGB Conc 34.6 g/dL (31.8-35.4); Mean Corpuscular Hemoglobin 27.1 pg (27.0-31.2); Mean Corpuscular Volume 78.1 fl (80-94); Nucleated Red Blood Cells % 0 %; Platelet Count 334 K/mm3 (142-424); Red Blood Count 6.21 M/mm3 (4.60-6.20); Red Cell Distribution Width-SD 40.2 fL; White Blood Count 11.4 K/mm3 (4.8-10.8)
--- NOTE | 2025-02-06 05:44 | ECG_ITS ---
APPROVED REPORT Exam: Resting ECG HR:101 bpm ECG Measurements Heart Rate 101 AXES KS 139 P 45 QRSd 109 QRS 73 QT 317 T -61 QTc 375 Conclusion SINUS TACHY[address]ARDIA ST DEVIATION AND MODERATE T-WAVE ABNORMALITY, CONSIDER INFERIOR ISCHEMIA [-0.1+ mV T-WAVE IN II/aVF] No STEMI. S1Q3T3 pattern potentially indicative of right heart strain or right hypertrophy No dynamic changes Electronically signed by : ROSHAN ABRAMS, 02/07/2025 06:26:07
[2025-02-06 05:45] LABS: Troponin I < 0.01 ng/ml (0.00-0.034)
[2025-02-06 05:47] LABS: D-Dimer 0.75 ug/mL (0.0-0.5)
--- NOTE | 2025-02-06 06:15 | CT_ITS ---
FINAL REPORT TECHNIQUE: The patient was injected with IV contrast. Axial images were obtained through the chest in a PE protocol. 3-D reconstruction images were also performed. Individualized dose reduction techniques using automated exposure control or adjustment of the MA and/or KV according to patient's size were employed. CLINICAL HISTORY: L chest pain, dimer equivocal, tachy FINDINGS: Mediastinal vasculature is adequately opacified. No pulmonary artery filling defects are identified to suggest PE. There is no aortic dissection. There is no axillary adenopathy. There is no hilar or mediastinal adenopathy. The heart size is normal. There is no pericardial or pleural effusion. Limited images of the upper abdomen are unremarkable. No suspicious infiltrate or nodule is identified. IMPRESSION: No pulmonary embolus or dissection. Reviewed, Interpreted and Dictated by Torsten Crooks MD Transcribed by Annalee Velasquez Authenticated and [facility]
[2025-02-06] MEDS: IOPAMIDOL-370 (76%);100ML BOTTLE 85 ML IV (07:00)
[2025-02-06] MEDS: SODIUM CHLORIDE 0.9% 10ML SYR (RAD ONLY) 10 ML IV (07:00)
[2025-02-06] MEDS: 0.9 % SODIUM CHLORIDE 50 ML VIAL IV (07:00)
== END 2025-02-06 08:07 | disposition home or self-care (01) ==
PROVIDERS: Emergency Provider Emergency Medicine; PCP Family Medicine
DX: R07.9 Chest pain, unspecified (principal); R00.0 Tachycardia, unspecified; I10 Essential (primary) hypertension; E66.9 Obesity, unspecified
CPT/HCPCS: 71046; 71275; 80053; 84484; 85025; 85378; 85610; 93005; 99285; Q9967